=== PATIENT | female | born 1945 | race Caucasian/White ===

== ENCOUNTER 2022-05-29 12:09 | Outpatient (CLI) | payer MEDICARE ==
[2022-05-29] MEDS ORDERED: Magnevist 469MG/ML 20 ML VIAL ONE (12:55)
== END 2022-05-29 12:10 | disposition home or self-care (01) ==
LOC: CSHMRI 12:09
PROVIDERS: ATTEND Ophthalmology
DX: H53.469 Homonymous bilateral field defects, unspecified side (principal)
CPT/HCPCS: 70553; A9579